=== PATIENT | male | born 2000 | race Caucasian/White ===

== ENCOUNTER 2019-08-16 10:22 | Day surgery (SDC) | payer MEDICAID, SELFPAY ==
[2019-08-16 10:46] VITALS: BP 145/74; PULSE 99; RESP 16; TEMP 36.9; O2SAT 95; BMI 17.4
[2019-08-16] MEDS: Lactated Ringers 1,000 ML 100 ML IV (10:52)
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
[2019-08-16] MEDS: Cefazolin 2 GM in 0.9% Normal Saline 100 ML IV (13:34)
[2019-08-16] MEDS: Bupivacaine Mpf 0.5% 30 ML VIAL (14:09)
--- NOTE | 2019-08-16 14:18 | PCM.DC.POD ---
Discharge Diet: Light diet - advance as tolerated Discharge Activity: May Not Drive Weight Bearing Status: Partial weight bearing - Limit weightbearing on right foot as much as possible Keep extremity elevated above heart level: Right Leg - Keep right foot elevated for at least 50 minutes of every hour for 1 week Call your doctor if your incision/area has: Continuous Slow Oozing, Sudden Increased Bleeding, Foul Smelling Discharge Call your doctor if you observe: Fever of 101 or Higher, Shortness of breath, Chest pain, Calf discomfort, Uncontrolled pain Cleanse incision/area with: Do not get Incision Wet, Keep Dressing Clean & Dry Allergies/Adverse Reactions: Allergies No Known Allergies Allergy (Verified 08/16/19 10:45) Medications to take at Discharge Cephalexin [Keflex] 500 mg PO DAILY 08/08/19 Ibuprofen 600 mg PO PRN PRN 08/08/19 Hydrocodone Bitart/Apap 5-325 [[place] 5MG-325MG] 1 tab PO Q6H PRN PRN 3 Days #12 tab 08/16/19 The following prescriptions were given: Hydrocodone Bitart/Apap 5-325 [[place] 5MG-325MG] 1 tab PO Q6H PRN PRN 3 Days #12 tab PRN Reason: Pain Prescription Printed Primary Care Physician: Gerard Vaughn MD [Primary Care Provider] - Test Results: Test results from this visit will be discussed in further detail at your follow-up appointment, if applicable. Please Follow Up With: Gerard Amezquita DPM When: 1 week, sooner if needed
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
[2019-08-16 14:21] VITALS: BP 107/50; BP 145/74; PULSE 63; RESP 16; TEMP 37; O2SAT 95
[2019-08-16 14:30] VITALS: BP 109/50; BP 145/74; PULSE 54; RESP 16; O2SAT 95
[2019-08-16 14:45] VITALS: BP 111/52; BP 145/74; PULSE 49; RESP 16; O2SAT 95
[2019-08-16 15:01] VITALS: BP 114/78; BP 145/74; PULSE 75; RESP 16; TEMP 36.9
[2019-08-16 15:20] VITALS: BP 145/74
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
== END 2019-08-16 16:15 | disposition home or self-care (01) ==
LOC: SDC 10:26 → AC 10:27
PROVIDERS: PCP Family Medicine; Referring Provider Podiatrist; Visit Provider Podiatrist
PROC: (CPT 28192; principal; 2019-08-16 11:45)
DX: S91.341A Puncture wound with foreign body, right foot, initial encounter (principal); F17.210 Nicotine dependence, cigarettes, uncomplicated; Z79.2 Long term (current) use of antibiotics; W34.010A Accidental discharge of airgun, initial encounter; Y93.89 Activity, other specified; Y92.89 Other specified places as the place of occurrence of the external cause; Y99.8 Other external cause status; Z11.59 Encounter for screening for other viral diseases
CPT/HCPCS: 01470; 28192; 73620; 76000; 87635; G2023; J7120; J2405; U0002